=== PATIENT | female | born 1975 | race African-American/Black ===

== ENCOUNTER 2018-10-26 16:45 | Emergency (ER) | payer BC ==
[~2018-10-26] VITALS: Ht 170.2 cm; Wt 86.2 kg
--- NOTE | ~2018-10-26 | EKG ---
[place] [address] [facility] [place] [address] ELECTROCARDIOGRAM REPORT Name: FCO STATON [facility]: [facility]ared[facility]ared[facility] [id number] Admission: 10/26/18 Attend Phys: Discharge: 10/26/18 Date of : 77 Report #: [id number] THIS REPORT FOR: //name// [facility] ED Test Date: 2018-10-26 Test Time: 16:53:03 Pat Name: FCO STATON Department: Room: Gender: F Tax Manager Public: : 1975 Requested By: Samuel Neville Order Number: [id number] MD: Meek Alarcon Measurements Intervals Champion Rate: 56 P: 50 CT: 149 QRS: 38 QRSD: 88 T: 43 QT: 416 QTc: 402 Interpretive Statements Sinus rhythm Nonspecific T-wave abnormality Electronically Signed On 10-27-2018 9:12:52 FLORAL MERCHANDISER by Meek Alarcon [email or web address] <ELECTRONICALLY SIGNED> By: Meek Alarcon MD 10/27/1812 1653 1653 Meek Alarcon MD /EPI
[2018-10-26 17:05] LABS: HEMATOCRIT 38.3 % (37.0-47.0); HEMOGLOBIN 12.6 gm/dL (12.0-15.0); MCH 28.1 pg (26.0-34.0); MCHC 32.8 g/dL (28.0-37.0); MCV 85.9 fL (80.0-100.0); PLATELET COUNT 235 thou/uL (150-400); RBC 4.46 mil/uL (4.20-5.00); WBC 6.3 thou/uL (4.0-11.0)
[2018-10-26 17:19] LABS: URINE BILIRUBIN NEGATIVE (Negative); URINE BLOOD NEGATIVE (Negative); URINE CLARITY CLEAR; URINE COLOR YELLOW; URINE GLUCOSE-RANDOM* NEGATIVE (Negative); URINE KETONES NEGATIVE (Negative); URINE NITRITE-REFLEX NEGATIVE (Negative); URINE PROTEIN (DIPSTICK) NEGATIVE (Negative); URINE UROBILINOGEN 0.2 E.U./dl (0.2-1.0)
[2018-10-26 17:20] LABS: ANION GAP 5 mmol/L (7-16); BUN 18 mg/dL (7-18); CALCIUM 9.6 mg/dL (8.5-10.1); CHLORIDE 103 mmol/L (98-107); CO2 28 mmol/L (21-32); CREATININE 1.1 mg/dL (0.6-1.0); GLUCOSE 100 mg/dL (74-106); POTASSIUM 4.3 mmol/L (3.5-5.1); SODIUM 136 mmol/L (136-145)
[2018-10-26 17:21] LABS: URINE LEUKOCYTES-REFLEX TRACE (Negative)
[2018-10-26 17:23] LABS: ALBUMIN 3.8 g/dL (3.4-5.0); SGOT 16 U/L (15-37); SGPT 23 U/L (30-65); TOTAL BILIRUBIN 0.2 mg/dL (<0.1-1.0); TOTAL PROTEIN 7.7 g/dL (6.4-8.2); TROPONIN-I <0.06 ng/mL (<0.06)
[2018-10-26 17:33] LABS: ABSOLUTE NEUTROPHILS 2.3 thou/uL (1.4-8.2); ANISOCYTOSIS 1+; POLYCHROMASIA OCCASIONAL
[2018-10-26] MEDS ORDERED: PEPCID20 MG PO (19:37)
[2018-10-26 20:05] VITALS: BP 127/81
== END 2018-10-26 20:08 | disposition home or self-care (01) ==
LOC: ER 16:45
PROVIDERS: Physician Assistant
DX: R07.89 Other chest pain (principal)